=== PATIENT | male | born 1970 | race Caucasian/White ===

== ENCOUNTER 2019-01-18 09:38 | Day surgery (SDC) | payer OTHER ==
[2019-01-18 10:28] LABS: MPV 8.9 fL (7.6-11.3)
[2019-01-18 10:40] LABS: Platelet Estimate ADEQ
[2019-01-18 11:20] VITALS: BMI 28.8
[2019-01-18 12:35] LABS: CSF Glucose 58 mg/dL (40-70)
[2019-01-18 12:42] LABS: Appearance CLEAR (CLEAR); Body Fluid Source CSF; Body Fluid WBC 0 /mm^3; Color of fluid Colorless (COLORLESS); Fluid Total Volume 11 ml
--- NOTE | 2019-01-18 12:55 | RAD REPORT ---
EXAM DESCRIPTION: RAD - Lumbar Puncture For Dx - 01/18/2019 11:54 am CLINICAL HISTORY: Memory loss COMPARISON: None FINDINGS: The risks, benefits and alternatives to the procedure were explained to the patient and in formed consent obtained. The patient was placed prone into the fluoroscopy suite. The skin and subcutaneous tissues were anest hetized with lidocaine. Under fluoroscopic guidance a 22 gauge spinal needle was advanced into the th ecal sac at L2-3 level. 10 cc of clear CSF removed and sent to the lab. Patient experienced immediate complication Fluoroscopy time 0.6 minutes. One fluoroscopic spot image obtained IMPRESSION: Lumbar puncture
[2019-01-18 14:34] VITALS: BP 124/70; TEMP 97.1; O2SAT 100
--- OUTSIDE RECORDS SUMMARY | 2019-01-27 19:30 | XMS REPORT ---
:1970 Author Organization [facility] Address [address] [place] [address] Dr. Bonilla [address] [place] [id number] Care Team Providers Name Role Phone Unavailable Unavailable Unavailable Problems This patient has no known problems. Allergies, Adverse Reactions, Alerts This patient has no known allergies or adverse reactions. Medications This patient has no known medications.
--- OUTSIDE RECORDS SUMMARY | 2019-01-27 19:30 | XMS REPORT ---
:1970 [facility] Address [address] [place] [address] Dr. Bonilla [address] [place] [id number] Care Team Providers Name Role Phone Unavailable Unavailable Unavailable Problems This patient has no known problems. Allergies, Adverse Reactions, Alerts This patient has no known allergies or adverse reactions. Medications This patient has no known medications.
== END 2019-01-18 14:05 | disposition home or self-care (01) ==
LOC: RAD 09:38 → DS 09:38 → EDSTATUS 11:00 → DS 14:05
PROVIDERS: ATTEND Psychiatry & Neurology Neurology
PROC: 009U3ZX Drainage of Spinal Canal, Percutaneous Approach, Diagnostic (ICD-10-PCS; principal; 2019-01-18)
DX: G31.84 Mild cognitive impairment of uncertain or unknown etiology (principal)
CPT/HCPCS: 36415; 77003; 82945; 84157; 85049; 85610; 85730; 89050

== ENCOUNTER 2019-01-21 08:12 | Emergency (ER) | payer OTHER ==
[2019-01-21] MEDS ORDERED: KETOROLAC 30 MG/ML INJ ONE (08:42)
[2019-01-21] MEDS ORDERED: NA CHLORIDE 0.9% 1,000 ML ONE (08:42)
[2019-01-21] MEDS ORDERED: ONDANSETRON 4 MG/2 ML VIAL ONE (08:42)
[2019-01-21 08:57] LABS: Absolute Lymphocytes (CBC) 0.6 K/uL (0.7-4.9); Basophils % 0.4 % (0-1.3); Hematocrit 46.2 % (39.6-49.0); Lymphocytes % 9.7 % (15.3-44.8); MPV 8.9 fL (7.6-11.3); RBC Red Blood Cell Count 5.04 M/uL (4.33-5.43)
[2019-01-21 09:20] LABS: Albumin 4.2 g/dL (3.4-5.0); Bilirubin Total 0.4 mg/dL (0.2-1.0); Potassium 3.7 mmol/L (3.5-5.1); Protein, Total 7.5 g/dL (6.4-8.2)
--- NOTE | 2019-01-21 09:53 | ER ---
Nurse's Notes [facility] Name: Neftaly Portillo Age: 48 yrs Sex: Male : 1970 Arrival Date: 01/21/2019 Time: 08:16 Bed 8 Private MD: Lenora Adam H Diagnosis: Headache Presentation: 01/21 08:40 Presenting complaint: Patient states: Intermittent headache that began Monday. ss Patient reports that he had a blood patch the day before, but is unsure if his headache is from the blood patch because it is coming and going. Headache became worse this morning after visiting his chiropractor. Transition of care: patient was not received from another setting of care. Onset of symptoms was January 19, 2019. Risk Assessment: Do you want to hurt yourself or someone else? Patient reports no desire to harm self or others. Initial Sepsis Screen: Does the patient meet any 2 criteria? No. Patient's initial sepsis screen is negative. Does the patient have a suspected source of infection? No. Patient's initial sepsis screen is negative. Care prior to arrival: None. 08:40 Method Of Arrival: Ambulatory 08:40 Acuity: JEANNIE 2 ss Historical: - Allergies: 08:44 No Known Allergies; ss - Home Meds: 08:44 testosterone [Active]; ss - PMHx: 08:44 Anxiety; ss - PSHx: 08:44 Hernia repair; ankle; ss - Immunization history:: Adult Immunizations up to date. - Social history:: Smoking status: Patient/guardian denies using tobacco. - Family history:: not pertinent. - Ebola Screening: : Patient denies exposure to infectious person Patient denies travel to an Ebola-affected area in the 21 days before illness onset. Screenin:45 Abuse screen: Denies threats or abuse. Denies injuries from another. Nutritional hb screening: No deficits noted. Tuberculosis screening: No symptoms or risk factors identified. Fall Risk None identified. Assessment: 08:45 General: Appears in no apparent distress. uncomfortable, Behavior is calm, cooperative. hb Pain: Pain currently is 10 out of 10 on a pain scale. Neuro: Level of Consciousness is awake, alert, obeys commands, Oriented to person, place, time, situation. Cardiovascular: Capillary refill < 3 seconds Patient's skin is warm and dry. Respiratory: Airway is patent Respiratory effort is even, unlabored, Respiratory pattern is regular, symmetrical. GI: No signs and/or symptoms were reported involving the gastrointestinal system. : No signs and/or symptoms were reported regarding the genitourinary system. EENT: No signs and/or symptoms were reported regarding the EENT system. Derm: Skin is pink, warm \T\ dry. Musculoskeletal: No signs and/or symptoms reported regarding the musculoskeletal system. 09:30 Reassessment: Dr. Correia at bedside for LP. hb 09:45 Reassessment: Pt supine per Dr. Correia. hb 10:45 Reassessment: Pt remains supine, HOB elevated 30* per Dr. Correia. hb 11:22 Reassessment: OK to discharge per Dr. Correia. hb Vital Signs: 08:44 BP 130 / 102; Pulse 78; Resp 16; Pulse Ox 100% on R/A; Weight 86.18 kg; Height 5 ft. 8 ss in. (172.72 cm); Pain 7/10; 08:44 BP 134 / 98; ss 09:20 Temp 98.4(TE); ss 09:45 BP 132 / 88; Pulse 76; Resp 16; Pulse Ox 100% on R/A; Pain 10/10; hb 10:45 BP 130 / 78; Pulse 77; Resp 16; Pulse Ox 100% on R/A; Pain 3/10; hb 08:44 Body Mass Index 28.89 (86.18 kg, 172.72 cm) ss ED Course: 08:16 Patient arrived in ED. mr 08:16 Lenora Adam DO is Private Physician. mr 08:33 Dakota Small MD is Attending Physician. priscila 08:43 Triage completed. ss 08:48 Initial lab(s) drawn, by oh, sent to lab. Inserted saline lock: 20 gauge in right dh3 antecubital area, using aseptic technique. Blood collected. 08:59 Arm band placed on. hb 09:03 Patient has correct armband on for positive identification. Placed in gown. Bed in low hb position. Call light in reach. Side rails up X 1. 09:26 Terri Carranza, RN is Primary Nurse. hb 09:32 Assist provider with lumbar puncture: Set up LP tray. Dr. Correia. hb 09:52 Lenora Adam DO is Referral Physician. priscila 09:52 Cory Sanon MD is Referral Physician. priscila 11:25 IV discontinued, intact, bleeding controlled, No redness/swelling at site. Pressure hb dressing applied. Administered Medications: 08:44 Drug: NS 0.9% 1000 ml Route: IV; Rate: 1 bolus; Site: right antecubital; hb 09:45 Follow up: Response: No adverse reaction; IV Status: Completed infusion; IV Intake: hb 1000ml 09:13 Drug: Zofran 4 mg Route: IVP; Site: right antecubital; ss 09:45 Follow up: Response: No adverse reaction hb 09:16 Drug: TORadol 30 mg Route: IVP; Site: right antecubital; ss 09:45 Follow up: Response: No adverse reaction hb 09:19 Drug: NS 0.9% 1000 ml Route: IV; Rate: 1 bolus; Site: right antecubital; ss 10:15 Follow up: Response: No adverse reaction; IV Status: Completed infusion; IV Intake: hb 1000ml Intake: 09:45 IV: 1000ml; Total: 1000ml. hb 10:15 IV: 1000ml; Total: 2000ml. hb Outcome: 09:52 Discharge ordered by MD. priscila 11:25 Discharged to home ambulatory. hb 11:25 Condition: stable 11:25 Discharge instructions given to patient, Instructed on discharge instructions, follow up and referral plans. medication usage, Demonstrated understanding of instructions, follow-up care, medications, Prescriptions given X 2. 11:27 Patient left the ED. hb Signatures: Dakota Small MD MD cha Rivera, Mary mr Smirch, Shelby, RN RN ss Baxter, Heather, RN RN Iona Taylor [facility]
--- NOTE | 2019-01-21 09:54 | EDPHYS ---
Physician Documentation [facility] Name: Neftaly Portillo Age: 48 yrs Sex: Male : 1970 Arrival Date: 01/21/2019 Time: 08:16 Bed 8 Private MD: Lenora Adam H ED Physician Dakota Small HPI: 01/21 08:38 This 48 yrs old Male presents to ER via Unassigned with complaints of priscila Headache, Vomiting. 08:38 The patient complains of pain to the top of head, forehead, left frontal area, left priscila side of the back of head, left occipital area, right frontal area, right side of the back of head, right occipital area and right base of the skull. The patient describes the headache as aching, constant. Onset: The symptoms/episode began/occurred 2 day(s) ago. Associated signs and symptoms: Pertinent positives: nausea, vomiting. Severity of symptoms: At its worst the pain was moderate, in the emergency department the pain is unchanged. Headache History: Denies prior headaches. The symptoms are alleviated by remaining still, sleep, the symptoms are aggravated by movement, standing. The patient has not experienced similar symptoms in the past. Historical: - Allergies: 08:44 No Known Allergies; ss - Home Meds: 08:44 testosterone [Active]; ss - PMHx: 08:44 Anxiety; ss - PSHx: 08:44 Hernia repair; ankle; ss - Immunization history:: Adult Immunizations up to date. - Social history:: Smoking status: Patient/guardian denies using tobacco. - Family history:: not pertinent. - Ebola Screening: : Patient denies exposure to infectious person Patient denies travel to an Ebola-affected area in the 21 days before illness onset. ROS: 08:40 Constitutional: Negative for fever, chills, and weight loss, Eyes: Negative for injury, priscila pain, redness, and discharge, ENT: Negative for injury, pain, and discharge, Neck: Negative for injury, pain, and swelling, Cardiovascular: Negative for chest pain, palpitations, and edema, Respiratory: Negative for shortness of breath, cough, wheezing, and pleuritic chest pain, Abdomen/GI: Negative for abdominal pain, nausea, vomiting, diarrhea, and constipation, Back: Negative for injury and pain, : Negative for injury, bleeding, discharge, and swelling, MS/Extremity: Negative for injury and deformity, Skin: Negative for injury, rash, and discoloration, Psych: Negative for depression, anxiety, suicide ideation, homicidal ideation, and hallucinations, Allergy/Immunology: Negative for hives, rash, and allergies, Endocrine: Negative for neck swelling, polydipsia, polyuria, polyphagia, and marked weight changes, Hematologic/Lymphatic: Negative for swollen nodes, abnormal bleeding, and unusual bruising. 08:40 Neuro: Positive for headache. Exam: 08:40 Constitutional: This is a well developed, well nourished patient who is awake, alert, priscila and in no acute distress. Head/Face: Normocephalic, atraumatic. Eyes: Pupils equal round and reactive to light, extra-ocular motions intact. Lids and lashes normal. Conjunctiva and sclera are non-icteric and not injected. Cornea within normal limits. Periorbital areas with no swelling, redness, or edema. ENT: Nares patent. No nasal discharge, no septal abnormalities noted. Tympanic membranes are normal and external auditory canals are clear. Oropharynx with no redness, swelling, or masses, exudates, or evidence of obstruction, uvula midline. Mucous membranes moist. Neck: Trachea midline, no thyromegaly or masses palpated, and no cervical lymphadenopathy. Supple, full range of motion without nuchal rigidity, or vertebral point tenderness. No Meningismus. Chest/axilla: Normal chest wall appearance and motion. Nontender with no deformity. No lesions are appreciated. Cardiovascular: Regular rate and rhythm with a normal S1 and S2. No gallops, murmurs, or rubs. Normal PMI, no JVD. No pulse deficits. Respiratory: Lungs have equal breath sounds bilaterally, clear to auscultation and percussion. No rales, rhonchi or wheezes noted. No increased work of breathing, no retractions or nasal flaring. Abdomen/GI: Soft, non-tender, with normal bowel sounds. No distension or tympany. No guarding or rebound. No evidence of tenderness throughout. Back: No spinal tenderness. No costovertebral tenderness. Full range of motion. Male : Normal genitalia with no discharge or lesions. Skin: Warm, dry with normal turgor. Normal color with no rashes, no lesions, and no evidence of cellulitis. MS/ Extremity: Pulses equal, no cyanosis. Neurovascular intact. Full, normal range of motion. Neuro: Awake and alert, GCS 15, oriented to person, place, time, and situation. Cranial nerves II-XII grossly intact. Motor strength 5/5 in all extremities. Sensory grossly intact. Cerebellar exam normal. Normal gait. Psych: Awake, alert, with orientation to person, place and time. Behavior, mood, and affect are within normal limits. 08:40 Neck: ROM/movement: is normal, no acute changes, Meningeal signs: are not present, Kernig's sign is negative, Brudzinski's sign is negative. Vital Signs: 08:44 BP 130 / 102; Pulse 78; Resp 16; Pulse Ox 100% on R/A; Weight 86.18 kg; Height 5 ft. 8 ss in. (172.72 cm); Pain 7/10; 08:44 BP 134 / 98; ss 09:20 Temp 98.4(TE); ss 09:45 BP 132 / 88; Pulse 76; Resp 16; Pulse Ox 100% on R/A; Pain 10/10; hb 10:45 BP 130 / 78; Pulse 77; Resp 16; Pulse Ox 100% on R/A; Pain 3/10; hb 08:44 Body Mass Index 28.89 (86.18 kg, 172.72 cm) ss MDM: 08:33 Patient medically screened. [facility] 08:41 Data reviewed: vital signs, nurses notes, lab test result(s). [facility] 01/21 08:38 Order name: CBC with Diff [facility] 01/21 08:38 Order name: Comprehensive Metabolic Panel priscila Administered Medications: 08:44 Drug: NS 0.9% 1000 ml Route: IV; Rate: 1 bolus; Site: right antecubital; hb 09:45 Follow up: Response: No adverse reaction; IV Status: Completed infusion; IV Intake: hb 1000ml 09:13 Drug: Zofran 4 mg Route: IVP; Site: right antecubital; ss 09:45 Follow up: Response: No adverse reaction hb 09:16 Drug: TORadol 30 mg Route: IVP; Site: right antecubital; ss 09:45 Follow up: Response: No adverse reaction hb 09:19 Drug: NS 0.9% 1000 ml Route: IV; Rate: 1 bolus; Site: right antecubital; ss 10:15 Follow up: Response: No adverse reaction; IV Status: Completed infusion; IV Intake: hb 1000ml Disposition: 01/21/19 09:52 Discharged to Home. Impression: Headache. - Condition is Stable. - Discharge Instructions: Spinal Headache. - Prescriptions for Fioricet with Codeine [id number] 325-40-30 mg Oral capsule - take 1 capsule by ORAL route every 4 hours as needed not to exceed 6 capsules per 24hrs; 20 capsule. Zofran 4 mg Oral Tablet - take 1 tablet by ORAL route every 12 hours As needed; 20 tablet. - Medication Reconciliation Form, Thank You Letter, Antibiotic Education, Prescription Opioid Use form. - Follow up: Lenora Adam; When: 2 - 3 days; Reason: Recheck today's complaints, Continuance of care, Re-evaluation by your physician. Follow up: Cory Sanon; When: 2 - 3 days; Reason: Recheck today's complaints, Continuance of care, Re-evaluation by your physician. - Problem is new. - Symptoms have improved. Signatures: Dispatcher [employer] EDOH Dakota Small MD MD cha Smirch, Shelby, RN RN ss Baxter, Heather, RN RN Corrections: (The following items were deleted from the chart) 11: 09:52 01/21/2019 09:52 Discharged to Home. Impression: Headache. Condition is Stable. hb Discharge Instructions: Spinal Headache. Prescriptions for Fioricet with Codeine [id number] mg Oral capsule - take 1 capsule by ORAL route every 4 hours as needed not to exceed 6 capsules per 24hrs; 20 capsule, Zofran 4 mg Oral Tablet - take 1 tablet by ORAL route every 12 hours As needed; 20 tablet. and Forms are Medication Reconciliation Form, Thank You Letter, Antibiotic Education, Prescription Opioid Use. Follow up: Lenora Adam; When: 2 - 3 days; Reason: Recheck today's complaints, Continuance of care, Re-evaluation by your physician. Follow up: Cory Sanon; When: 2 - 3 days; Reason: Recheck today's complaints, Continuance of care, Re-evaluation by your physician. Problem is new. Symptoms have improved. priscila
[2019-01-21 11:35] VITALS: O2SAT 100
[2019-01-21 11:36] VITALS: TEMP 98.4
[2019-01-21 11:40] VITALS: BP 130/78
--- OUTSIDE RECORDS SUMMARY | 2019-01-27 20:36 | XMS REPORT ---
:1970 [facility] Address [address] [place] [address] Dr. Bonilla [address] [place] [id number] Care Team Providers Name Role Phone Unavailable Unavailable Unavailable Problems This patient has no known problems. Allergies, Adverse Reactions, Alerts This patient has no known allergies or adverse reactions. Medications This patient has no known medications.
== END 2019-01-21 11:27 | disposition home or self-care (01) ==
LOC: ER 08:12
DX: R51 Headache (principal); F41.9 Anxiety disorder, unspecified
CPT/HCPCS: 96361; 85025; 36415; 80053; 62270; 96375; 96374; 99284; J7030; J2405

== ENCOUNTER 2019-02-04 15:59 | Emergency (ER) | payer OTHER ==
--- OUTSIDE RECORDS SUMMARY | 2019-02-04 16:00 | XMS REPORT ---
:1970 [facility] Address [address] [place] [address] Dr. Bonilla [address] [place] [id number] Care Team Providers Name Role Phone Unavailable Unavailable Unavailable Problems This patient has no known problems. Allergies, Adverse Reactions, Alerts This patient has no known allergies or adverse reactions. Medications This patient has no known medications.
[2019-02-04] MEDS ORDERED: METOCLOPRAMIDE 10 MG/2mL INJ ONE (17:23)
[2019-02-04] MEDS ORDERED: NA CHLORIDE 0.9% 1,000 ML ONE (17:23)
[2019-02-04] MEDS ORDERED: DIPHENHYDRAMINE 50 MG/ML VIAL ONE (17:23)
[2019-02-04 18:01] LABS: Absolute Lymphocytes (CBC) 0.8 K/uL (0.7-4.9); Basophils % 0.6 % (0-1.3); MPV 8.8 fL (7.6-11.3); RBC Red Blood Cell Count 4.93 M/uL (4.33-5.43)
[2019-02-04 18:13] LABS: Albumin 4.4 g/dL (3.4-5.0); Bilirubin Total 0.3 mg/dL (0.2-1.0); C-Reactive Protein 76.3 mg/L (<3.00); Potassium 3.8 mmol/L (3.5-5.1)
--- NOTE | 2019-02-04 18:52 | RAD REPORT ---
EXAM DESCRIPTION: CT - Head Brain Wo Cont - 02/04/2019 6:46 pm CLINICAL HISTORY: headache persistent since LP Headache, drowsiness COMPARISON: No comparisonsLumbar Puncture For Dx dated 01/18/2019 TECHNIQUE: All CT scans are performed using dose optimization technique as appropriate and may inclu de automated exposure control or mA/KV adjustment according to patient size. FINDINGS: No intracranial hemorrhage, hydrocephalus or extra-axial fluid collection.No areas of brai n edema or evidence of midline shift. The paranasal sinuses and mastoids are clear. The calvarium is intact. IMPRESSION: No acute intracranial abnormality.
--- NOTE | 2019-02-04 18:56 | RAD REPORT ---
EXAM DESCRIPTION: CT - Soft Tissue Neck W/Contr CLINICAL HISTORY: r/o epidural abscess Neck pain, headache COMPARISON: No comparisons TECHNIQUE All CT scans are performed using dose optimization technique as appropriate and may includ e automated exposure control or mA/KV adjustment according to patient size. FINDINGS: Nasopharyngeal tissues are normal in appearance. Fossa Rosenmller are normal. Parapharyngeal fat triangles are symmetric. Tongue base structures are normal. Epiglottis and aryepiglottic folds are normal. Piriform sinuses are well aerated. The vocal cords are normal in appearance. Salivary glands are normal in appearance. Upper lung chan are clear. Included intracranial contents are unremarkable. Mild lower cervical spondylosis. IMPRESSION: No acute finding demonstrated.
--- NOTE | 2019-02-04 19:07 | ER ---
Nurse's Notes [facility] Name: Neftaly Portillo Age: 48 yrs Sex: Male : 1970 Arrival Date: 02/04/2019 Time: 16:02 Bed 8 Private MD: Lenora Adam H Diagnosis: Headache;Radiculopathy, cervicothoracic region Presentation: 02/04 16:10 Presenting complaint: Seen in ED 2 weeks ago for blood patch, reports headache hb persists, worse when standing for long periods of time. Transition of care: patient was not received from another setting of care. Onset of symptoms was February 04, 2019. Risk Assessment: Do you want to hurt yourself or someone else? Patient reports no desire to harm self or others. Care prior to arrival: None. 16:10 Method Of Arrival: Ambulatory hb 16:10 Acuity: JEANNIE 3 hb 16:17 Initial Sepsis Screen: Does the patient meet any 2 criteria? No. Patient's initial tw2 sepsis screen is negative. Does the patient have a suspected source of infection? No. Patient's initial sepsis screen is negative. Triage Assessment: 16:16 Headache History: The patient has had previous headaches and this one is different than tw2 previous episodes, and this one is less severe than previous episodes. General: Appears in no apparent distress. Behavior is calm, cooperative, appropriate for age. Pain: Pain began 2-3 days ago. Also complains of. Neuro: Reports headache. 16:17 Pain: Pain currently is 3 out of 10 on a pain scale. tw2 Historical: - Allergies: 16:13 No Known Allergies; hb - Home Meds: 16:13 testosterone [Active]; Zoloft 100 mg Oral tab 1 tab once daily [Active]; trazodone 50 hb mg Oral tab nightly [Active]; amantadine HCl 100 mg Oral cap 1 cap 2 times per day [Active]; - PMHx: 16:13 Anxiety; hb - PSHx: 16:13 Hernia repair; ankle; hb - Immunization history:: Adult Immunizations up to date. - Social history:: Smoking status: Patient/guardian denies using tobacco. - Ebola Screening: : No symptoms or risks identified at this time. Screenin:16 Abuse screen: Denies threats or abuse. Nutritional screening: No deficits noted. tw2 Tuberculosis screening: No symptoms or risk factors identified. Fall Risk None identified. Assessment: 16:34 Reassessment: Dr. Durand at bedside at this time. tw2 17:37 General: Appears in no apparent distress. Behavior is calm, cooperative, appropriate tw2 for age. Pain: Complains of pain in headache. Neuro: Reports headache. Cardiovascular: Heart tones S1 S2 Patient's skin is warm and dry. Respiratory: Airway is patent Respiratory effort is even, unlabored, Respiratory pattern is regular, symmetrical, Breath sounds are clear bilaterally. GI: No signs and/or symptoms were reported involving the gastrointestinal system. Abdomen is flat. : No signs and/or symptoms were reported regarding the genitourinary system. EENT: No signs and/or symptoms were reported regarding the EENT system. Derm: No signs and/or symptoms reported regarding the dermatologic system. Musculoskeletal: Range of motion: intact in all extremities. 19:12 Reassessment: Patient appears in no apparent distress at this time. Patient is alert, lp1 oriented x 3, equal unlabored respirations, skin warm/dry/pink. Patient states feeling better. Patient states symptoms have improved. 19:41 Reassessment: Provider at bedside discussing results and plan of care with patient. lp1 19:43 Reassessment: Verbal order from Provider for Decadron 10 mg IV. lp1 Vital Signs: 16:13 BP 151 / 100; Pulse 91; Resp 16; Temp 98.4; Pulse Ox 100% on R/A; Weight 86.18 kg; hb Height 5 ft. 8 in. (172.72 cm); Pain 3/10; 17:37 BP 155 / 98; Pulse 75; Resp 17; Pulse Ox 100% on R/A; tw2 18:12 BP 139 / 94; Pulse 65; Resp 17; Pulse Ox 100% on R/A; tw2 19:13 BP 132 / 83; Pulse 77; Resp 18; Pulse Ox 99% on R/A; lp1 16:13 Body Mass Index 28.89 (86.18 kg, 172.72 cm) hb ED Course: 16:02 Patient arrived in ED. mr 16:02 Lenora Adam DO is Private Physician. mr 16:12 Triage completed. hb 16:13 Arm band placed on. hb 16:14 Ruiz, Nicole, RN is Primary Nurse. tw2 16:14 Bed in low position. Call light in reach. tw2 16:16 Maciel Durand MD is Attending Physician. ps1 17:15 Initial lab(s) drawn, by me, sent to lab. Inserted saline lock: 20 gauge in left upper sg arm, using aseptic technique. Blood collected. 18:[address] via wheelchair. eh 18:40 CT completed. Patient moved back from CT. eh 18:41 Kimberly Marie [facility]C [facility]. snw 18:46 CT Head Brain wo Cont In Process Unspecified. EDMS 18:47 CT Soft Tissue Neck W/contr In Process Unspecified. EDMS 19:03 Report given to CARMELA Aguilar. tw2 19:04 Lenora Adam DO is Referral Physician. snw 19:13 No provider procedures requiring assistance completed. lp1 20:01 IV discontinued, No redness/swelling at site. Pressure dressing applied. lp1 Administered Medications: 17:26 Drug: Reglan 10 mg Route: IVP; Site: left antecubital; tw2 18:12 Follow up: Response: No adverse reaction tw2 17:26 Drug: NS 0.9% 1000 ml Route: IV; Rate: 1 bolus; Site: left antecubital; tw2 19:00 Follow up: Response: No adverse reaction; IV Status: Completed infusion; IV Intake: tw2 1000ml 17:35 Drug: Benadryl 50 mg Route: IVP; Site: left antecubital; tw2 18:12 Follow up: Response: No adverse reaction tw2 19:51 Drug: Decadron - Dexamethasone 10 mg Route: IVP; Site: left upper arm; lp1 20:06 Follow up: Response: No adverse reaction lp1 Intake: 19:00 IV: 1000ml; Total: 1000ml. tw2 Outcome: 19:06 Discharge ordered by . snw 19:41 Condition: good lp1 19:51 Discharge instructions given to patient, Instructed on discharge instructions, follow lp1 up and referral plans. medication usage, Demonstrated understanding of instructions, follow-up care, medications, Prescriptions given X 2. 20:01 Discharged to home ambulatory. lp1 20:05 Patient left the ED. lp1 Signatures: Dispatcher [employer] EDBrandon Kim RN RN sg Kimberly Marie, [employer] RESCUE-C [employer]-Csnw Dasia Ro, Lauren Macias RN RN lp1 Terri Carranza RN RN Nicole Ruiz RN RN tw2 Maciel Durand MD MD ps1 Corrections: (The following items were deleted from the chart) 19:13 19:13 BP 132 / 83; Pulse 18bpm; Resp 77bpm; Pulse Ox 99% RA; lp1 lp1
--- NOTE | 2019-02-04 19:07 | EDPHYS ---
Physician Documentation [facility] Name: Neftaly Portillo Age: 48 yrs Sex: Male : 1970 Arrival Date: 02/04/2019 Time: 16:02 Bed 8 Private MD: Lenora Adam H ED Physician Maicel Durand HPI: 02/04 17:33 This 48 yrs old Male presents to ER via Ambulatory with complaints of ps1 Headache, Neck Problem. 17:35 patient states that he had a LP with post LP headache s/p blood patch 2 weeks ago. ps1 Patient had an LP 2/2 multiple non-specific complaints being evaluated by neurology. Patient was complaining of intermittent memory loss with inability to remember directions and word loss. Severe depression (not currently SI/HI). He is currently seeing psych, neuro, and endo to address his concerns. He has not had complete remission of his headache since blood patch. Pain is localized in neck and back of head rated as 4/10. He has not had a fever or point tenderness. . Historical: - Allergies: 16:13 No Known Allergies; hb - Home Meds: 16:13 testosterone [Active]; Zoloft 100 mg Oral tab 1 tab once daily [Active]; trazodone 50 hb mg Oral tab nightly [Active]; amantadine HCl 100 mg Oral cap 1 cap 2 times per day [Active]; - PMHx: 16:13 Anxiety; hb - PSHx: 16:13 Hernia repair; ankle; hb - Immunization history:: Adult Immunizations up to date. - Social history:: Smoking status: Patient/guardian denies using tobacco. - Ebola Screening: : No symptoms or risks identified at this time. ROS: 17:35 Constitutional: Negative for fever, chills, and weight loss, Eyes: Negative for injury, ps1 pain, redness, and discharge, Cardiovascular: Negative for chest pain, palpitations, and edema, Respiratory: Negative for shortness of breath, cough, wheezing, and pleuritic chest pain, Abdomen/GI: Negative for abdominal pain, nausea, vomiting, diarrhea, and constipation, MS/Extremity: Negative for injury and deformity, Skin: Negative for injury, rash, and discoloration. 17:35 Neuro: Positive for headache. Exam: 17:45 Constitutional: This is a well developed, well nourished patient who is awake, alert, ps1 and in no acute distress. Head/Face: Normocephalic, atraumatic. Eyes: Pupils equal round and reactive to light, extra-ocular motions intact. Lids and lashes normal. Conjunctiva and sclera are non-icteric and not injected. Chest/axilla: Normal chest wall appearance and motion. Nontender with no deformity. No lesions are appreciated. Cardiovascular: Regular rate and rhythm. No gallops, murmurs, or rubs. Normal PMI, no JVD. No pulse deficits. Respiratory: Lungs have equal breath sounds bilaterally, clear to auscultation and percussion. No rales, rhonchi or wheezes noted. No increased work of breathing, no retractions or nasal flaring. Abdomen/GI: Soft, non-tender, with normal bowel sounds. No distension or tympany. No guarding or rebound. No evidence of tenderness throughout. Skin: Warm, dry with normal turgor. Normal color with no rashes, no lesions, and no evidence of cellulitis. MS/ Extremity: Pulses equal, no cyanosis. Neurovascular intact. Full, normal range of motion. Neuro: Awake and alert, GCS 15, oriented to person, place, time, and situation. Cranial nerves II-XII grossly intact. Sensory grossly intact. Vital Signs: 16:13 BP 151 / 100; Pulse 91; Resp 16; Temp 98.4; Pulse Ox 100% on R/A; Weight 86.18 kg; hb Height 5 ft. 8 in. (172.72 cm); Pain 3/10; 17:37 BP 155 / 98; Pulse 75; Resp 17; Pulse Ox 100% on R/A; tw2 18:12 BP 139 / 94; Pulse 65; Resp 17; Pulse Ox 100% on R/A; tw2 19:13 BP 132 / 83; Pulse 77; Resp 18; Pulse Ox 99% on R/A; lp1 16:13 Body Mass Index 28.89 (86.18 kg, 172.72 cm) hb MDM: 18:05 Patient medically screened. ps1 19:08 Data reviewed: vital signs, nurses notes. Data interpreted: Pulse oximetry: on room air snw is 100 %. Interpretation: normal. Counseling: I had a detailed discussion with the patient and/or guardian regarding: the historical points, exam findings, and any diagnostic results supporting the discharge/admit diagnosis, the presence of at least one elevated blood pressure reading (>120/80) during this emergency department visit, lab results, radiology results, the need for outpatient follow up, to return to the emergency department if symptoms worsen or persist or if there are any questions or concerns that arise at home. Special discussion: Based on the history and exam findings, there is no indication for further emergent testing or inpatient evaluation. I discussed with the patient/guardian the need to see the primary care provider for further evaluation of the symptoms. 02/04 17:07 Order name: CBC with Diff; Complete Time: 18:06 ps1 02/04 17:07 Order name: CMP; Complete Time: 18:27 ps1 02/04 18:39 Interpretation: Abnormal: CRE 1.35; GFR 57. ps1 02/04 17:07 Order name: CRP; Complete Time: 18:27 ps1 02/04 18:40 Interpretation: Abnormal: C-REACTIVE PROT 76.30. ps1 02/04 18:13 Order name: CT Head Brain wo Cont; Complete Time: 19:02 ps1 02/04 18:14 Order name: CT Soft Tissue Neck W/contr; Complete Time: 19:02 ps1 02/04 17:17 Order name: IV Start; Complete Time: 17:37 tw2 Administered Medications: 17:26 Drug: Reglan 10 mg Route: IVP; Site: left antecubital; tw2 18:12 Follow up: Response: No adverse reaction tw2 17:26 Drug: NS 0.9% 1000 ml Route: IV; Rate: 1 bolus; Site: left antecubital; tw2 19:00 Follow up: Response: No adverse reaction; IV Status: Completed infusion; IV Intake: tw2 1000ml 17:35 Drug: Benadryl 50 mg Route: IVP; Site: left antecubital; tw2 18:12 Follow up: Response: No adverse reaction tw2 19:51 Drug: Decadron - Dexamethasone 10 mg Route: IVP; Site: left upper arm; lp1 20:06 Follow up: Response: No adverse reaction lp1 Disposition: 02/05 07:06 Co-signature as Attending Physician, Maciel Durand MD I agree with the assessment and ps1 plan of care. Attestation: The patient's history, exam findings, diagnostics, and a summary of any interventions or procedures was reviewed in detail with Maciel Durand MD. Disposition: 02/04/19 19:06 Discharged to Home. Impression: Headache, Radiculopathy, cervicothoracic region. - Condition is Stable. - Discharge Instructions: Cervical Radiculopathy, Epidural Blood Patch for Spinal Headache, Hypertension, Rehydration, Adult, Form - Blood Pressure Record Sheet. - Prescriptions for orphenadrine citrate 100 mg Oral Tablet Sustained Release - take 1 tablet by ORAL route 2 times per day As needed; 20 tablet. promethazine 25 mg Oral Tablet - take 1 tablet by ORAL route every 6 hours As needed; 20 tablet. - Medication Reconciliation Form, Thank You Letter, Antibiotic Education, Prescription Opioid Use, Work release form form. - Follow up: Lenora Adam DO; When: 2 - 3 days; Reason: Recheck today's complaints, Continuance of care, Re-evaluation by your physician. Follow up: Emergency Department; When: As needed; Reason: Worsening of condition. Signatures: Dispatcher [employer] EDMS Kimberly Marie, D[employer] POWER MECH[employer]IC-C [employer]IESEL POWER MECHANIC-[employer] Lauren Starks RN RN lp1 Terri Carranza RN RN Nicole Ruiz RN RN tw2 Maciel Durand MD MD ps1 Corrections: (The following items were deleted from the chart) 02/04 18:39 18:39 Abnormal: CRE 1.35. ps1 ps1 20:05 19:06 02/04/2019 19:06 Discharged to Home. Impression: Headache; Radiculopathy, lp1 cervicothoracic region. Condition is Stable. Forms are Work release form, Medication Reconciliation Form, Thank You Letter, Antibiotic Education, Prescription Opioid Use. Follow up: Lenora Adam; When: 2 - 3 days; Reason: Recheck today's complaints, Continuance of care, Re-evaluation by your physician. Follow up: Emergency Department; When: As needed; Reason: Worsening of condition. snw
[2019-02-04] MEDS ORDERED: dexAMETHasone 10 MG/ML VIAL ONE (19:45)
[2019-02-04 23:17] VITALS: TEMP 98.4
[2019-02-04 23:20] VITALS: BP 132/83; O2SAT 99
== END 2019-02-04 20:05 | disposition home or self-care (01) ==
LOC: ER 15:59
DX: M54.13 Radiculopathy, cervicothoracic region (principal); F41.9 Anxiety disorder, unspecified
CPT/HCPCS: 96361; 85025; 36415; 80053; 86140; 70450; 70491; 96375; 96374; 99284; Q9967; J2765; J1200; J1100; J7030